=== PATIENT | male | born 1970 | race African-American/Black ===

== ENCOUNTER 2024-09-18 13:27 | Emergency (ER) | payer SELFPAY ==
[2024-09-18 13:34] VITALS: RESP 16; BMI 22.2
[2024-09-18] MEDS ORDERED: ACETAMINOPHEN 500 MG TABLET (FP) ONE (13:54)
[2024-09-18] MEDS: ACETAMINOPHEN 500 MG TABLET (FP) PO ONE (14:01)
[2024-09-18 15:17] LABS: ABSOLUTE IMMATURE GRANULOCYTES 0.04 x10^3/uL (0.0-0.031); BASOPHILS # 0.05 x10^3/uL (0.01-0.08); EOSINOPHIL % 0.9 % (0.8-7.0); EOSINOPHILS # 0.09 x10^3/uL (0.04-0.54); MCHC 32.5 g/dl (32.3-36.5); MEAN CELL VOLUME 92.4 fl (79.0-92.2); MEAN PLT VOLUME 8.7 fl (9.4-12.4); MONOCYTE # 0.78 x10^3/uL (0.30-0.82); MONOCYTE % 7.5 % (5.3-12.2); RDW 13.3 % (12.2-16.1)
[2024-09-18] MEDS: SODIUM CHLORIDE 0.9% 500 ML INFUS.BAG IV ONE (15:20)
[2024-09-18 15:26] LABS: EPI CELLS 19 /uL (0-25.1); HYALINE CASTS 4 /uL (0-3.1); URINE APPEARANCE CLEAR; URINE BACTERIA 45 /uL (0-1359); URINE BILIRUBIN NEGATIVE (NEGATIVE); URINE COLOR YELLOW; URINE GLUCOSE (UA) NEGATIVE (NEGATIVE); URINE KETONE TRACE (NEGATIVE); URINE LEUK ESTERASE 2+ (NEGATIVE); URINE NITRITE NEGATIVE (NEGATIVE); URINE PROTEIN NEGATIVE (NEGATIVE); URINE RBC 25 /uL (0-23.9); URINE UROBILINOGEN 0.2 mg/dL (0.2-1.0); URINE WBC 160 /uL (0-25.8)
[2024-09-18 16:00] LABS: CO2 27.0 mmol/L (21-32)
[2024-09-18 16:01] LABS: GLUCOSE,RANDOM 93.0 mg/dL (74-106)
[2024-09-18 16:03] LABS: CREATININE 0.9 mg/dL (0.55-1.3); SGOT/AST 33.0 U/L (15-37); SGPT/ALT 76.0 U/L (13-61)
[2024-09-18 16:05] LABS: TOT PROT 8.0 g/dl (6.4-8.2)
[2024-09-18 16:06] LABS: ALK PHOS 191.0 U/L (45-117)
[2024-09-18 17:32] VITALS: BP 173/84; PULSE 82
[2024-09-18] MEDS ORDERED: CEPHALEXIN 250 MG/5 ML ORAL SUSPENSION PO ONE (17:33)
[2024-09-18 17:34] VITALS: TEMP 99.1
[2024-09-18 17:35] LABS: HCV DIAGNOSTIC IN-HOUSE W/RFLX NON-REACTIVE (NONREACTIVE); HIV INTERPRETATION NEGATIVE (NEGATIVE)
[2024-09-18] MEDS ORDERED: IBUPROFEN 600 MG TABLET (FP) PO ONE (17:35)
[2024-09-18] MEDS ORDERED: CEPHALEXIN MONOHYDRATE 500 MG CAPSULE (UD) ONE (17:35)
[2024-09-18] MEDS: IBUPROFEN 600 MG TABLET (FP) PO ONE (17:47)
[2024-09-18] MEDS: CEPHALEXIN MONOHYDRATE 500 MG CAPSULE (UD) PO ONE (17:48)
== END 2024-09-18 17:48 | disposition home or self-care (01) ==
LOC: JERFT 13:27
DX: N30.00 Acute cystitis without hematuria (principal); R50.9 Fever, unspecified; R51.9 Headache, unspecified; R07.9 Chest pain, unspecified
CPT/HCPCS: 36415; 70450-TC; 71046-TC-FY; 80053; 81003; 85025; 86803; 87086; 87389; 87637-QW; 93005; 93010; 99285-25

== ENCOUNTER 2024-10-25 12:46 | Emergency (ER) | payer OTHER ==
[2024-10-25 12:53] VITALS: BP 160/81; PULSE 76; RESP 20; TEMP 98.3; BMI 21.2
[2024-10-25 17:38] LABS: ABSOLUTE IMMATURE GRANULOCYTES 0.10 x10^3/uL (0.0-0.031); BASOPHILS # 0.03 x10^3/uL (0.01-0.08); EOSINOPHIL % 1.4 % (0.8-7.0); EOSINOPHILS # 0.11 x10^3/uL (0.04-0.54); MCHC 31.8 g/dl (32.3-36.5); MEAN CELL VOLUME 93.0 fl (79.0-92.2); MEAN PLT VOLUME 8.8 fl (9.4-12.4); MONOCYTE # 0.53 x10^3/uL (0.30-0.82); MONOCYTE % 6.9 % (5.3-12.2); RDW 13.0 % (12.2-16.1)
[2024-10-25 18:26] LABS: GLUCOSE,RANDOM 79.0 mg/dL (74-106); TOT PROT 7.4 g/dl (6.4-8.2)
[2024-10-25 18:27] LABS: CO2 28.0 mmol/L (21-32)
[2024-10-25 18:29] LABS: ALK PHOS 89.0 U/L (40-150)
[2024-10-25 18:31] LABS: SGPT/ALT 11.0 U/L (0-55)
[2024-10-25 18:32] LABS: CREATININE 0.92 mg/dL (0.55-1.3); SGOT/AST 19.0 U/L (5-34)
== END 2024-10-25 19:25 | disposition home or self-care (01) ==
LOC: JER 12:46
DX: M89.9 Disorder of bone, unspecified (principal); R51.9 Headache, unspecified; M25.511 Pain in right shoulder; M25.512 Pain in left shoulder; M54.2 Cervicalgia; M54.50 Low back pain, unspecified; M89.8X9 Other specified disorders of bone, unspecified site
CPT/HCPCS: 36415; 72125-TC; 72131-TC; 80053; 84153; 85025; 99284-25